=== PATIENT | female | born 1985 | race Caucasian/White ===

== ENCOUNTER 2016-07-29 17:00 | Outpatient (CLI) | payer OTHER, MEDICAID ==
[~2016-07-29 17:00] MED LIST: ASA CHILDREN'S81 MG PO; COLACE-DPS100 MG PO; DILAUDID4 MG PO; FLEXERIL-DPS10 MG PO; GLUCOPHAGE-DPS500 MG PO; GLUCOPHAGE1000 MG PO; IRON325 M1 PO; LABETALOL HCL100 MG PO; LEXAPRO DPS20 MG PO; LISINOPRIL10 MG PO; METFORMIN HCL1000 M1 PO; MOTRIN-DPS800 MG PO; NEURONTIN DPS100 MG PO; NEURONTIN DPS300 MG PO; NEURONTIN600 MG PO; PERCOCET 7.5 DP1 TAB PO; PRENATAL VIT1 TAB PO; ROBITUSSIN PO; SEROQUEL50 MG PO; TYLENOL #3 DPS1 TAB PO; TYLENOL325 MG PO; VALIUM5 MG PO; ZESTRIL DPS20 MG PO
[2016-08-09] MEDS ORDERED: LEXAPRO DPS20 MG PO (11:52)
[2016-08-09] MEDS ORDERED: SEROQUEL50 MG PO (11:52)
[2016-08-09] MEDS ORDERED: MAG-OX400 MG PO (11:53)
[2016-08-09] MEDS ORDERED: NOVOLOG100 UNIT/2 SQ (11:54)
[2016-08-31] MEDS ORDERED: MOTRIN-DPS800 MG PO (07:49)
[2016-08-31] MEDS ORDERED: NIPPLECREAM TP (07:49)
[2016-08-31] MEDS ORDERED: COLACE-DPS100 MG PO (07:49)
[2016-08-31] MEDS ORDERED: PERCOCET 5 DPS1 TAB PO (07:49)
== END 2016-07-29 21:00 | disposition home or self-care (01) ==
LOC: 2LDRP 17:00 → BC 17:00
DX: O99.89 Other specified diseases and conditions complicating pregnancy, childbirth and the puerperium (principal); R51 Headache; Z3A.31 31 weeks gestation of pregnancy

== ENCOUNTER 2016-08-07 14:00 | Observation (INO) | payer OTHER, MEDICAID ==
[2016-08-09] MEDS ORDERED: LEXAPRO DPS20 MG PO (11:52)
[2016-08-09] MEDS ORDERED: SEROQUEL50 MG PO (11:52)
[2016-08-09] MEDS ORDERED: MAG-OX400 MG PO (11:53)
[2016-08-09] MEDS ORDERED: NOVOLOG100 UNIT/2 SQ (11:54)
[2016-08-31] MEDS ORDERED: MOTRIN-DPS800 MG PO (07:49)
[2016-08-31] MEDS ORDERED: PERCOCET 5 DPS1 TAB PO (07:49)
[2016-08-31] MEDS ORDERED: NIPPLECREAM TP (07:49)
[2016-08-31] MEDS ORDERED: COLACE-DPS100 MG PO (07:49)
== END 2016-08-08 14:55 | disposition home or self-care (01) ==
LOC: 2LDRP 14:00
PROVIDERS: ADMIT Obstetrics & Gynecology
DX: O16.1 Unspecified maternal hypertension, first trimester (principal); O24.911 Unspecified diabetes mellitus in pregnancy, first trimester; Z3A.11 11 weeks gestation of pregnancy; F32.9 Major depressive disorder, single episode, unspecified

== ENCOUNTER 2016-08-25 15:50 | Inpatient (IN) | payer OTHER, MEDICAID ==
[~2016-08-25] VITALS: Ht 162.6 cm; Wt 116.6 kg
[~2016-08-25 15:50] MED LIST changes: +MAG-OX400 MG PO; +NOVOLOG100 UNIT/2 SQ
[2016-08-31] MEDS ORDERED: PERCOCET 5 DPS1 TAB PO (07:49)
[2016-08-31] MEDS ORDERED: COLACE-DPS100 MG PO (07:49)
[2016-08-31] MEDS ORDERED: MOTRIN-DPS800 MG PO (07:49)
[2016-08-31] MEDS ORDERED: NIPPLECREAM TP (07:49)
--- NOTE | 2016-09-22 09:14 | OR ---
ADMIT: 08/25/2016 RM/LOC: 223 [facility]#: [id number] [id number] [address] [facility] [address] [place] [id number] IDNA BORGES [address] [place] [address] Operative/Delivery Room Report SEX: F AGE: 30 : 1985 SURGERY DATE: 08/25/2016 SURGEON: Smita Chin MD PREOPERATIVE DIAGNOSES: 1. Intrauterine at 34 weeks gestation. 2. Chronic hypertension with superimposed preeclampsia with severe features. 3. Diabetes mellitus type 2. 4. Obesity. 5. Previous x2. 6. History of an intrauterine demise at 21 weeks with her last . 7. Depression. 8. History of left nephrectomy. POSTOPERATIVE DIAGNOSES: 1. Intrauterine at 34 weeks gestation. 2. Chronic hypertension with superimposed preeclampsia with severe features. 3. Diabetes mellitus type 2. 4. Obesity. 5. Previous x2. 6. History of an intrauterine demise at 21 weeks with her last . 7. Depression. 8. History of left nephrectomy. 9. Delivery of a viable male infant at 2129 hours, weighing 2360 g with Apgars of 3 at 1 minute, 6 at 5 minutes, 6 at 10 minutes. PROCEDURE: Repeat low transverse section. DAYCARE DIRECTOR: Mary Burdick MD ANESTHESIA: Spinal. COMPLICATIONS: None. ESTIMATED BLOOD LOSS: 500 mL. FLUIDS: Crystalloid. INDICATIONS: This is a 30-year-old female, 5, para 2-1-1-2, who presented to the [facility] with an intrauterine at 34 weeks gestation for monitoring and a biophysical profile. Her has been complicated by chronic hypertension, superimposed preeclampsia diagnosed at approximately 28 weeks, history of preeclampsia with indicated delivery in her previous pregnancies, type 2 diabetes, history of an IUFD at 21 weeks, history of a nephrectomy, obesity, depression, and history of C- section x2. While being monitored in the [facility]thing Center, her blood pressures were noted to be systolic 140s to 180s with diastolics of 80s to 90s. ADMIT: 08/25/2016 RM/LOC: 223 [facility] MR#: [id number] [address] [address] DINA BORGES [address] [place] [address] Operative/Delivery Room Report SEX: F AGE: 30 : 1985 biophysical profile was 6/10 with no breathing and nonreactive NST noted. At this time, given these findings, the decision was made to proceed with a repeat . The risks, benefits, and alternatives were reviewed with the patient prior to proceeding and she agreed to proceed. FINDINGS: Normal maternal uterus, tubes, and ovaries. Male as above. PROCEDURE IN DETAIL: The patient was properly identified. Informed consent was obtained. She was then taken to the operating room where spinal anesthesia was placed. She was then placed in the dorsal supine position with a leftward tilt and prepped and draped in the usual sterile fashion. After adequate spinal anesthesia was noted, a Pfannenstiel skin incision was made with a scalpel. This was carried through to the underlying layer of fascia. The fascia was incised in the midline and the incision was extended laterally using the Guillen scissors. The superior aspect of the fascia was grasped with Steve clamps, elevated, and the underlying rectus muscles were dissected off. Attention was then turned to the inferior aspect of the fascia in a similar manner, it was grasped with Steve clamps, elevated, and underlying rectus muscles were dissected off. The rectus muscles were in the midline. The peritoneum was identified, elevated with Sheridan clamps, and entered sharply with the Metzenbaum scissors. The incision was then extended superiorly and inferiorly with good visualization of the bladder. The bladder blade was placed. The vesicouterine peritoneum was identified, grasped with pickups, and entered sharply with the Guillen scissors. The incision was extended laterally and a bladder flap was created digitally. The bladder blade was then replaced and the lower uterine segment was incised in a transverse fashion with a scalpel. The uterine incision was then extended with a stretch maneuver. The amniotic sac was entered and a large amount of clear fluid was noted. The 's vertex was then brought through the uterine incision followed by the anterior and posterior shoulders and the remainder of the infant. The infant did have spontaneous cry and movement of all 4 extremities. The cord was clamped x2 and cut, and the infant was taken to the warmer where nursing personnel and Dr. Lopez, senior support engineer were in attendance. Cord blood was obtained. The placenta delivered with help from traction and uterine massage. The uterus was exteriorized and cleared of all clot and debris. The uterine incision was repaired with 0 Vicryl in a running, locked fashion. Two [id number]-[id number] sutures were placed to obtain ADMIT: 08/25/2016 RM/LOC: 223 [facility] MR#: [id number] [address] [place] [id number] DINA BORGES [address] [place] [address] Operative/Delivery Room Report SEX: F AGE: 30 : 1985 excellent hemostasis. The uterus was returned to the abdomen. The gutters were cleared of all clot and debris. The uterine incision was reinspected and noted to be hemostatic. The posterior aspect of the rectus fascia and the rectus muscles were made hemostatic with use of electrocautery. The rectus fascia was reapproximated with 0 Vicryl in a running, nonlocking fashion. The subcutaneous tissues were made hemostatic with use of electrocautery. They were reapproximated using 3-0 plain. Subcuticular caitlin were placed and then a Prevena plus dressing was placed. The patient tolerated the procedure well. Sponge, lap, needle, and instrument counts were correct. The patient was taken to recover in her Labor and Delivery suite. The was taken back to the Intensive Care Unit for close observation and necessary treatment. Smita Chin MD/ mickey JOB #: [id number] CC: Smita Chin, Attending Physician Smita Chin, Family Physician
--- NOTE | 2016-09-22 09:14 | HP ---
ADMIT: 08/25/2016 RM/LOC: 223 [facility] MR#: [id number] [address] [address] DINA BORGES [address] [place] [address] History and Physical SEX: F AGE: 30 : 1985 DATE OF SERVICE: CHIEF COMPLAINT: Elevated blood pressure, nonreactive NST in the office. HISTORY OF PRESENT ILLNESS: This is a 30-year-old female, 5, para 2-1- 1-2, who presents to the [facility] after being seen in the office for a routine OB visit. Her estimated date of confinement is 10/06/2016. This is based off a 7-week ultrasound, and she is currently 34 weeks estimated gestational age. Her has been complicated by chronic hypertension with superimposed preeclampsia, history of preeclampsia with indicated delivery x2, type 2 diabetes, history of an IUFD at 21 weeks, history of nephrectomy, obesity, depression, history of a previous x2, and history of a spontaneous . She did have a nonreactive NST in the office. Her blood pressure was also noted to be 160/90. She was sent to the [facility] for further evaluation. She was noted to have blood pressures ranging from 140s to 180 systolic with diastolics in the 80s to 90s. biophysical profile was 6/10 with no breathing and a nonreactive NST noted. At this time, given her estimated gestational age, chronic hypertension with superimposed preeclampsia, and nonreassuring antepartum testing, the decision was made to proceed with a repeat . PAST OBSTETRICAL HISTORY: She had one C section in 2004 at 36 weeks'. Repeat in 2010 at 35 weeks'. Spontaneous in 2014 and an IUFD at 21 weeks in 2015. LABORATORY DATA: Blood type is A positive. Antibody screen negative. HIV negative. RPR nonreactive. Hepatitis B surface antigen negative. Rubella immune. Gonorrhea chlamydia is negative. Quad screen did show an increased risk for Down syndrome of 1 to 260. Group B Strep is unknown. PAST MEDICAL HISTORY: Significant for: 1. Chronic hypertension. 2. Type 2 diabetes. 3. Underlying proteinuria with history of nephrectomy. 4. Obesity. 5. Depression. 6. She denies asthma or thyroid disease. PAST SURGICAL HISTORY: Left nephrectomy in 2002, she donated a kidney to her brother. Back surgery in 2013. Diskectomy x2 in 2014. Spinal fusion in 2014. A in 2004, repeat in 2010. SOCIAL HISTORY: She is . She denies tobacco, alcohol, or drug use. ALLERGIES: NO KNOWN DRUG ALLERGIES. CURRENT MEDICATIONS: 1. vitamin daily. ADMIT: 08/25/2016 RM/LOC: 223 [facility] MR#: [id number] [address] [address] DINA BORGES [address] [place] [address] History and Physical SEX: F AGE: 30 : 1985 2. Iron supplement b.i.d. 3. Baby aspirin daily. 4. Lexapro 20 mg daily. 5. Labetalol 100 mg b.i.d. 6. Magnesium oxide b.i.d. 7. Metformin 2000 mg at bedtime. 8. Seroquel 50 mg at bedtime. 9. NPH insulin at 15 units in a.m. and 15 units in p.m. PHYSICAL EXAMINATION: VITAL SIGNS: She is afebrile. Blood pressure is 161/84, pulse 99. GENERAL: This is a pleasant female, in no acute distress. HEENT: Head is normocephalic, atraumatic. Pupils are equal, round, and reactive to light and accommodation. Extraocular muscles are intact. NECK: Supple. HEART: Regular rate and rhythm. LUNGS: Clear bilaterally. ABDOMEN: Soft, nontender, nondistended, and gravid. EXTREMITIES: Nontender. heart tones are 140 at baseline. Moderate variability is present. A 10 x 10 accelerations are present. Decelerations appear absent. Uterine contractions are rare. Cervical exam is deferred. IMPRESSION: This is a 30-year-old female, 5, para 2-1-1-2 with an intrauterine at 34 weeks' gestation. 1. Chronic hypertension with superimposed preeclampsia. 2. Type 2 diabetes mellitus. 3. History of x2. 4. History of an IUFD. ADMIT: 08/25/2016 RM/LOC: 223 [facility] MR#: [id number] [address] [address] DINA BORGES [address] [place] [address] History and Physical SEX: F AGE: 30 : 1985 5. Depression. PLAN: At this time, we do plan to proceed with delivery and since she has had a previous x2, we will proceed with a repeat . The risks, benefits, and alternatives have been discussed with the patient including, but not limited to the risks for bleeding, infection, potential for injury to the bowel, bladder, major vessels, or other nearby organs requiring repair. All of her questions have been answered, and she agrees to proceed. We will also plan to start magnesium sulfate for seizure prophylaxis and run this for 24 hours post delivery. We will treat her blood pressures as needed to keep them in the mildly elevated range and also start the patient on sliding scale insulin. Smita Chin MD/ mickey JOB #: [id number] CC: Smita Chin, Attending Physician Smita Chin, Family Physician
--- NOTE | 2016-10-19 13:55 | DS ---
ADMIT: 08/25/2016 RM/LOC: 223 [facility] MR#: [id number] 26[address] [facility] [address] [place] [id number] DINA BORGES [address] [place] [address] General Discharge Summary SEX: F AGE: 30 : 1985 ADMISSION DATE: 08/25/2016 DISCHARGE DATE: 08/29/2016 PRIMARY DIAGNOSES: 1. Status post repeat low-transverse section at 34 weeks. 2. Chronic hypertension with superimposed preeclampsia with severe features. 3. Diabetes mellitus type 2. 4. Obesity. 5. Depression. 6. History of left nephrectomy. 7. History of an intrauterine at 21 weeks. PROCEDURES PERFORMED: On 08/25/2016, repeat low-transverse section with delivery of a viable male , weighing 2360 g with scores of 3 at 1 minute, 6 at 5 minutes and 6 at 10 minutes. HOSPITAL COURSE: This is a 30-year-old female, 5, para 2-1-1-2, [facility] an intrauterine at 34 weeks gestation for monitoring and biophysical profile. Her was complicated by chronic hypertension, superimposed preeclampsia, history of preeclampsia with indicated delivery in her previous pregnancies, type 2 diabetes, history of an IUFD at 21 weeks, history of nephrectomy, obesity, depression, and history of x2. She was noted to have severe range pressures and a biophysical profile of 6/10. Given these findings, the decision was made to proceed with a repeat . She did undergo this procedure without any complications. She was started on magnesium sulfate postoperatively. By the morning of postoperative day #1, her pain was well controlled. She did deny any nausea or vomiting. Her blood pressures are mildly elevated range. Her postoperative hemoglobin was 9.4. Her other labs were stable. Her magnesium sulfate was discontinued after 24 hours. By the morning of postoperative day #2, she was able to ambulate and void without any difficulty. She remained in the hospital for blood pressure monitoring as well as to stay close to her baby in the NICU. On postoperative day #4, she was deemed stable for discharge and dismissed to home. DISCHARGE INSTRUCTIONS: She was asked to call with any signs or symptoms of infection including a temperature greater than 100.4 degrees. Vaginal bleeding greater than 1 pad an hour, erythema or drainage of her abdominal incision or any erythema or tenderness in her lower extremities or breasts. She was dismissed on:' 1. Motrin 800 mg 1 p.o. q.8 hours p.r.n. pain #30. 2. Percocet 5/325, 1 to 2 p.o. q.4 to 6 hours p.r.n. pain #30. 3. Ferrous sulfate 325 mg p.o. b.i.d. 4. Colace 100 mg p.o. b.i.d. She was advised to continue her home medications including her: 1. vitamin daily. ADMIT: 08/25/2016 RM/LOC: 223 [facility] MR#: [id number] [facility] [address] [address] DINA BORGES [address] [place] [address] General Discharge Summary SEX: F AGE: 30 : 1985 2. Lexapro 20 mg daily. 3. Labetalol 100 mg p.o. b.i.d. 4. Magnesium oxide b.i.d. 5. Metformin 2000 mg at bedtime. 6. Seroquel 50 mg at bedtime. She was instructed to follow up in 2 weeks for an incision check and in 6 weeks for a check. CONDITION ON DISCHARGE: Stable. DISPOSITION: The patient was dismissed to home. Smita Chin MD/ mickey JOB #: [id number] CC: Smita Chin MD, Attending Physician Smita Chin MD, Family Physician
== END 2016-08-29 15:30 | disposition home or self-care (01) | DRG 766 ==
LOC: 2LDRP 15:50 → BC 15:50 → 2LDRP 20:11
PROVIDERS: ADMIT Obstetrics & Gynecology
PROC: 10D00Z1 Extraction of Products of Conception, Low, Open Approach (ICD-10-PCS; principal; 2016-08-25)
DX: O11.4 Pre-existing hypertension with pre-eclampsia, complicating childbirth (principal); O24.12 Pre-existing type 2 diabetes mellitus, in childbirth; O99.214 Obesity complicating childbirth; E66.9 Obesity, unspecified; E11.9 Type 2 diabetes mellitus without complications; O99.02 Anemia complicating childbirth; D64.9 Anemia, unspecified; F32.9 Major depressive disorder, single episode, unspecified; O10.02 Pre-existing essential hypertension complicating childbirth; Z79.4 Long term (current) use of insulin; O34.211 Maternal care for low transverse scar from previous cesarean delivery; O76 Abnormality in fetal heart rate and rhythm complicating labor and delivery; O99.344 Other mental disorders complicating childbirth; Z68.39 Body mass index [BMI] 39.0-39.9, adult; Z90.5 Acquired absence of kidney; Z79.82 Long term (current) use of aspirin; Z3A.34 34 weeks gestation of pregnancy; Z37.0 Single live birth